=== PATIENT | female | born 1945 | race Caucasian/White ===

== ENCOUNTER 2021-02-22 13:03 | Emergency (ER) | payer MEDICARE ==
[~2021-02-22] VITALS: Ht 160 cm; Wt 67.7 kg
[~2021-02-22 13:03] MED LIST: ATORVASTATIN CA10 MG PO; DELTASONE20 MG PO
[2021-02-22] MEDS ORDERED: LISINOPRIL10 MG PO (13:28)
== END 2021-02-22 14:58 | disposition home or self-care (01) ==
LOC: ED 13:03
DX: J02.9 Acute pharyngitis, unspecified (principal); Z88.0 Allergy status to penicillin; Z88.2 Allergy status to sulfonamides; Z79.899 Other long term (current) drug therapy; Z20.822 Contact with and (suspected) exposure to COVID-19
CPT/HCPCS: 99283; C9803; U0003

== ENCOUNTER 2022-05-01 09:51 | Day surgery (SDC) | payer MEDICARE ==
[~2022-05-01] VITALS: Ht 162.6 cm; Wt 63.6 kg
--- NOTE | ~2022-05-01 | OR ---
[facility] [address], [place] [address] Draft DATE OF OPERATION: 05/01/2022 SURGEON: Leonard Carolina MD PREOPERATIVE DIAGNOSIS: Progressive constipation, occasions of diarrhea. POSTOPERATIVE DIAGNOSIS: Profound sigmoid and left-sided diverticulosis, otherwise normal. PROCEDURE: Total colonoscopy to cecum with intubation of ileum and biopsy of rectum. ANESTHESIA: Intravenous sedation with fentanyl 150 mcg and Versed 4 mg. INDICATION: This 76-year-old white woman is a patient of Dr. Hein. She is known to me from the past. She has complaints of dominantly constipation but occasion of diarrhea as well. As it turns out, she is taking a fiber supplement, but also taking loperamide. The schedule for which she takes these is rather unclear. She is admitted at this time to undergo colonoscopy to better characterize the dominant problem of constipation. She and her understand the risk of bleeding, infection, and perforation and wished to proceed. FINDINGS: The prep was quite excellent. Complete colonoscopy was undertaken to the cecum. She had significant and extensive sigmoid and left-sided diverticulosis, but the remaining colon was normal. The ileum was intubated and found to be normal as well. Biopsies were taken of the rectum to rule out occult colitis. DESCRIPTION OF PROCEDURE: The patient was brought to the endoscopy suite and placed in the lateral decubitus position, given intravenous sedation to the point of slurred speech and nystagmus. Digital rectal examination was normal. An Olympus video colonoscope was passed in the rectum and manipulated throughout the colon noting extensive diverticular changes of sigmoid and left colon. The scope was ultimately advanced to the cecum. The ileocecal valve and appendiceal orifice were identified and found to be normal. Various manipulations allowed for intubation of the ileum. The ileal mucosa was normal. The scope was withdrawn from that point and examination throughout undertaken showed no PATIENT NAME: NANCI TORRES OPERATIVE REPORT DATE OF : 43 REPORT #: [id number] PHYSICIAN: LEONARD CAROLINA MD PCP: HANNA HEIN MD REPORT IS CONFIDENTIAL AND NOT TO BE RELEASED WITHOUT AUTHORIZATION [facility] [address], [place] [address] Draft evidence of polyps, only diverticulosis of the left side and sigmoid. Retroflexed view was normal. The scope was withdrawn and biopsies taken the rectum to rule out occult colitis. The scope was removed and the patient was taken to the recovery room in good condition. CONCLUDING DIAGNOSIS: The constipation is most likely related to diverticulosis. Her episodic diarrhea is of uncertain etiology. I would have her eliminate the loperamide completely and continue with fiber supplement at this time. If she still has problems, I am able to work with her to outline a bowel regimen that may be beneficial. She will otherwise return to the ongoing care of Dr. Hein. MD JOS Montez/LIZZY /[id number] cc: Hanna Hein MD Copies: HANNA HEIN MD ~ PATIENT NAME: NANCI TORRES [facility] OPERATIVE REPORT DATE OF : 43 REPORT #: [id number] PHYSICIAN: LEONARD ACROLINA MD PCP: HANNA HEIN MD REPORT IS CONFIDENTIAL AND NOT TO BE RELEASED WITHOUT AUTHORIZATION
[~2022-05-01 09:51] MED LIST changes: +ACULAR LS5 ML OPTH; +CINNAMON500 MG PO; +COQ-10100 MG PO; +FLONASE ALLERG9.9 ML NAS; +LISINOPRIL10 MG PO
--- NOTE | 2022-05-01 13:32 | NUR ---
05/01/22 1332 Karen Hampton 1319 PATIENT ARRIVES TO PACU AWAKE BUT DROWSY. DENIES PAIN OR NAUSEA. PASSING GAS. RESP EVEN AND UNLABORED, NC AT 3 LITERS, TURNED OFF ON ARRIVAL TO PACU. 1330 PATIENT AWAKE OFFON. CONTINUES TO DENY PAIN OR NAUSEA. RESP EVEN AND UNLABORED,ROOM AIR SATS 100%.
== END 2022-05-01 13:50 | disposition home or self-care (01) ==
LOC: OPS 09:51 → DS 09:54 → OPS 11:00 → DS 12:00 → OPS 12:00 → DS 13:00 → OPS 13:50
PROVIDERS: ATTEND Surgery
PROC: 0DBP8ZX Excision of Rectum, Via Natural or Artificial Opening Endoscopic, Diagnostic (ICD-10-PCS; principal; 2022-05-01 11:00)
DX: K57.30 Diverticulosis of large intestine without perforation or abscess without bleeding (principal); K59.00 Constipation, unspecified
CPT/HCPCS: 99153; G0500; J2250; J3010; J7121